=== PATIENT | female | born 1935 | race Two or more races ===

== ENCOUNTER 2018-09-05 15:39 | Inpatient (IN) | payer MEDICARE, OTHER ==
[~2018-09-05] VITALS: Ht 152.4 cm; Wt 49.4 kg
[2018-09-05] MEDS ORDERED: SINEMET 25-1001 EAC1 ORAL (15:54)
[2018-09-05] MEDS ORDERED: LISINOPRIL5 MG ORAL (15:54)
[2018-09-05] MEDS ORDERED: METOPROLOL TART50 MG ORAL (15:54)
[2018-09-05] MEDS ORDERED: QUETIAPINE FUMA50 MG ORAL (15:54)
[2018-09-05] MEDS ORDERED: DIVALPROEX SOD250 M1 PO (15:54)
[2018-09-05] MEDS ORDERED: SIMVASTATIN20 MG ORAL (15:54)
[2018-09-05] MEDS ORDERED: BENZTROPINE ME0.5 MG PO (15:54)
--- NOTE | 2018-09-05 15:55 | NUR ---
ED Nurse Note: Pt BIBA from [facility] due to being "more aggitated", AOx2 (name/place), seems confused at times but calm and cooperative with staffs. Vital signs stable jose angel. Will cont to monitor.
[2018-09-05 15:57] VITALS: BP 146/76
--- NOTE | 2018-09-05 16:08 | Emergency Room Report ---
History of Present Illness General Chief Complaint: General Complaint Source: Medical Record, PMD Present Illness HPI 82-year-old female, coming from [facility], with history of dementia, hypertension, hyperlipidemia, presenting with inability to care for self. She' s at the [facility] and she has been having frequent falls. Reportedly the [facility] cannot take care of her any longer per the PMD Dr. Carias so she will require admission to the hospital. The family cannot take care of her either. Patient noted to have a bruise to her right eye, she says she does not know when this happened. Allergies: Coded Allergies: No Known Allergies (Unverified , 09/05/18) Patient History Past Medical History: see triage record Past Surgical History: none Pertinent Family History: none Reviewed Nursing Documentation: PMH: Agreed; PSxH: Agreed Nursing Documentation-PMH Past Medical History: No History, Except For History Of Psychiatric Problem: Yes - bipolar Hx Neurological Problems: No - parkinson Review of Systems All Other Systems: limited - dementia Physical Exam Vital Signs Date Time Temp Pulse Resp B/P (MAP) Pulse Ox O2 Delivery O2 Flow Rate FiO2 09/05/18 15:47 97.9 80 16 146/76 99 Room Air Sp02 EP Interpretation: reviewed, normal General Appearance: normal inspection, well appearing, no apparent distress, alert, GCS 15, non-toxic Head: normocephalic, atraumatic Eyes: bilateral eye normal inspection, bilateral eye PERRL, bilateral eye EOMI ENT: other - Under right eye there is a bruise, otherwise normal oropharynx Neck: normal inspection, full range of motion, supple Respiratory: normal inspection, lungs clear, normal breath sounds, no respiratory distress, no retraction, no wheezing, speaking full sentences, chest symmetrical Cardiovascular #1: normal inspection, regular rate, rhythm, no edema, normal capillary refill Cardiovascular #2: 2+ radial (R), 2+ radial (L) Gastrointestinal: normal inspection, non tender, soft, non-distended, no guarding Musculoskeletal: normal inspection, back normal, normal range of motion, non- tender Neurologic: other - Oriented to person and place but not to situation or time. Moving all 4 extremities spontaneously Psychiatric: other - dementia Skin: normal inspection, normal color, no rash, warm/dry, well hydrated, normal turgor Medical Decision Making Diagnostic Impression: Primary Impression: Weakness Additional Impression: Frequent falls ER Course 82-year-old female with dementia coming from boarding care, they can no longer take care of her because of frequent falls DDX: Does not appear to have any acute traumatic injuries, but rule out intracranial bleed because of her bruise on her right eye Plan: Obtain labs, ua, EKG, CXR CT head ER course: Patient has been monitored during ED stay, HD stable Are awake and alert Disposition: Patient is to be admitted to [facility] D/W hospitalist Dr Carias Please note that this Emergency Department Report was dictated using [employer] golf coach technology software, occasionally this can lead to erroneous entry secondary to interpretation by the dictation equipment. EKG Diagnostic Results EP Interpretation: Yes Rate: normal Rhythm: NSR ST Segments: No acute changes ASA given to patient: No Rhythm Strip EP Interpretation: Yes Rate: 81 Rhythm: NSR, no PVCs, no ectopy Chest X-ray CXR: Ordered: Yes 1 view Indication: Altered mental status EP interpretation: Yes Interpretation: No consolidation, no effusion, no PTX, no acute cardiopulmonary disease Impression: No acute disease Electronically signed by Wan Roberson MD Laboratory Tests Test 09/05/18 16:20 White Blood Count 10.6 K/UL (4.8-10.8) Red Blood Count 3.94 M/UL (4.20-5.40) L Hemoglobin 13.1 G/DL (12.0-16.0) Hematocrit 39.0 % (37.0-47.0) Mean Corpuscular Volume 99 FL (80-99) Mean Corpuscular Hemoglobin 33.3 PG (27.0-31.0) H Mean Corpuscular Hemoglobin Concent 33.6 G/DL (32.0-36.0) Red Cell Distribution Width 12.8 % (11.6-14.8) Platelet Count 205 K/UL (150-450) Mean Platelet Volume 6.8 FL (6.5-10.1) Neutrophils (%) (Auto) 61.8 % (45.0-75.0) Lymphocytes (%) (Auto) 25.2 % (20.0-45.0) Monocytes (%) (Auto) 10.1 % (1.0-10.0) H Eosinophils (%) (Auto) 1.7 % (0.0-3.0) Basophils (%) (Auto) 1.2 % (0.0-2.0) Sodium Level 139 MMOL/L (136-145) Potassium Level 4.7 MMOL/L (3.5-5.1) Chloride Level 100 MMOL/L (98-107) Carbon Dioxide Level 35 MMOL/L (21-32) H Anion Gap 4 mmol/L (5-15) L Blood Urea Nitrogen 26 mg/dL (7-18) H Creatinine 0.8 MG/DL (0.55-1.30) Estimate Glomerular Filtration Rate mL/min (>60) Glucose Level 90 MG/DL (74-106) Calcium Level 9.5 MG/DL (8.5-10.1) Total Bilirubin 0.5 MG/DL (0.2-1.0) Aspartate Amino Transferase (AST) 21 U/L (15-37) Alanine Aminotransferase (ALT) 6 U/L (12-78) L Alkaline Phosphatase 87 U/L (46-116) Total Protein 6.9 G/DL (6.4-8.2) Albumin 2.8 G/DL (3.4-5.0) L Globulin 4.1 g/dL Albumin/Globulin Ratio 0.7 (1.0-2.7) L CT/MRI/US Diagnostic Results CT/MRI/US Diagnostic Results : Imaging Test Ordered: CT HEAD Impression IMPRESSION: Chronic and age-related changes. 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 Sep 05, 2018 16:08
[2018-09-05 16:46] LABS: BASOPHILS % (AUTO) 1.2 % (0.0-2.0); EOSINOPHILS % (AUTO) 1.7 % (0.0-3.0); HEMOGLOBIN 13.1 G/DL (12.0-16.0); LYMPHOCYTES % (AUTO) 25.2 % (20.0-45.0); MEAN CORPUSCULAR VOLUME 99 FL (80-99); MONOCYTES % (AUTO) 10.1 % (1.0-10.0); NEUTROPHILS % (AUTO) 61.8 % (45.0-75.0); PLATELET COUNT 205 K/UL (150-450); RED BLOOD COUNT 3.94 M/UL (4.20-5.40); RED CELL DISTRIBUTION WIDTH 12.8 % (11.6-14.8); WHITE BLOOD COUNT 10.6 K/UL (4.8-10.8)
--- NOTE | 2018-09-05 17:00 | Diagnostic Imaging Report ---
Indication: Reason For Exam: AMS Technique: One view of the chest Comparison: none Findings: No acute infiltrates, effusions, or congestion. Tortuous calcified aorta. Normal heart size. Upper mediastinum unremarkable. Impression: No acute process.
--- NOTE | 2018-09-05 17:04 | Diagnostic Imaging Report ---
Indication: Head pain, status post fall Technique: spiral acquisitions obtained through the brain. Angled axial and coronal 5 x 5 mm slices were reconstructed. No IV contrast utilized. Radiation dose was minimized using automated exposure control Total dose length product 1369.05 mGycm. CTDIvol(s) 70.38 mGy Comparison: none FINDINGS: No acute hemorrhage or edema. No mass effect or midline shift. There is age-related enlargement of the ventricles and extra axial CSF spaces. There is periventricular deep white matter ischemic change. Normal aaron-white differentiation. Visualized orbits are unremarkable. Visualized sinuses are unremarkable. Intact calvarium. Densely calcified extra-axial lesion in the lateral left middle fossa measures 18 x 12 x 20 mm, likely an old ossified meningioma. This does not result in any significant mass effect IMPRESSION: Chronic and age-related changes. 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
[2018-09-05 17:05] LABS: ANION GAP 4 mmol/L (5-15); BLOOD UREA NITROGEN 26 mg/dL (7-18); CALCIUM 9.5 MG/DL (8.5-10.1); CARBON DIOXIDE 35 MMOL/L (21-32); CHLORIDE 100 MMOL/L (98-107); CREATININE 0.8 MG/DL (0.55-1.30); POTASSIUM 4.7 MMOL/L (3.5-5.1); SODIUM 139 MMOL/L (136-145)
[2018-09-05 17:10] LABS: ALANINE AMINOTRANSFERASE 6 U/L (12-78); ALBUMIN 2.8 G/DL (3.4-5.0); ALBUMIN/GLOBULIN RATIO 0.7 (1.0-2.7); ALKALINE PHOSPHATASE 87 U/L (46-116); ASPARTATE AMINO TRANSFERASE 21 U/L (15-37); BILIRUBIN,TOTAL 0.5 MG/DL (0.2-1.0)
--- NOTE | 2018-09-05 17:38 | NUR ---
ED Nurse Note: [address] RN is not ready to take report at this time, will try again.
[2018-09-05 17:45] VITALS: BP 141/57
[2018-09-05 17:51] LABS: APPEARANCE,URINE CLOUDY; BILIRUBIN, URINE NEGATIVE (NEGATIVE); COLOR,URINE PALE YELLOW; GLUCOSE, URINE (UA) NEGATIVE (NEGATIVE); KETONES,URINE NEGATIVE (NEGATIVE); LEUKOCYTE ESTERASE ,URINE 3+ (NEGATIVE); NITRITE,URINE NEGATIVE (NEGATIVE); PH,URINE 8 (4.5-8.0); PROTEIN,URINE NEGATIVE (NEGATIVE); UROBILINOGEN,URINE NORMAL MG/DL (0.0-1.0)
--- NOTE | 2018-09-05 18:00 | NUR ---
ED Nurse Note: Repor given to JEOVANNY Peck at ext [phone]. Pt to be transfered to room 405-1 per protocol with all belongings.
[2018-09-05] MEDS ORDERED: cefTRIAXone 1 GM in D5W 55 ML IVPB ONE (18:15)
[2018-09-05] MEDS ORDERED: DEPAKOTE250 MG PO (18:36)
[2018-09-05] MEDS ORDERED: DEPAKOTE500 MG PO (18:36)
[2018-09-05 20:00] VITALS: BP 123/76
--- NOTE | 2018-09-05 20:11 | NUR ---
NURSE NOTES: Received report from JEOVANNY Peck. Patient on room air, no signs of distress or labored breathing. IV intact, patent, and saline locked. Bed in lowest position with call light in reach. Called MD for admission orders, awaiting response.
[2018-09-06] VITALS: BP 126/79
[2018-09-06 04:00] VITALS: BP 138/77
--- NOTE | 2018-09-06 07:35 | NUR ---
HAND-OFF: Report given to JEOVANNY Limon.
[2018-09-06 07:45] VITALS: BP 129/72
[2018-09-06] MEDS: Depakote 500mg tab ORAL SCH ×2 (08:47→17:03)
[2018-09-06] MEDS: Lisinopril 2.5mg tab ORAL SCH (08:48)
[2018-09-06] MEDS: Levodopa/Carbidopa 25/100 tab ORAL SCH ×3 (08:48→17:03)
[2018-09-06] MEDS: Metoprolol Tartrate 50mg tab ORAL SCH (08:48)
--- NOTE | 2018-09-06 09:44 | NUR ---
NURSE NOTES: pt awake alert, no distress. call light within reach. bed in lowest position, locked. will monitor.
--- NOTE | 2018-09-06 10:15 | NUR ---
PT EVALUATION NOTE: Patient seen for initial evaluation, see complete evaluation for details. Patient presents with decreased strength which impairs patient's functional mobility. Patient will benefit from skilled inpatient PT intervention to address strength, balance, safety awareness and functional mobility. Recommend DC to SNF for continued rehab once cleared by .
--- NOTE | 2018-09-06 11:08 | NUR ---
Social Service Note SW spoke with Lulu [phone] fitness worker of [employer]. Patient with no known family. Per Lulu pervious to their facility patient resided in another [facility] owned board and care. Lulu states patient is struggling with ambulation and has had a fall. Board and Care unable to meet patient's needs at this time and recommend SNF placement. Referral faxed to [facility] [phone] (p) [phone] (f). Patient is a full code, doesn't have an advance directive or POLST. Will continue to monitor.
[2018-09-06 12:00] VITALS: BP 120/72
--- NOTE | 2018-09-06 13:14 | Consultation ---
History of Present Illness General Chief Complaint: General Complaint Present Illness HPI 82-year-old female with history of dementia, hypertension, hyperlipidemia, presenting with more confusion. the pt has had several falls. The pt is confused and unable to provide any meaningful hx. the pt is wasily agitated. She was unable to provide any hx. the pt is lacks capacity to make decisions. Allergies: Coded Allergies: No Known Allergies (Unverified , 09/05/18) Medication History Scheduled Benztropine Mesylate* (Cogentin*), 1 MG PO BID, (Reported) Carbidopa/Levodopa 25-100 Mg* (Sinemet 25-100 Mg Tablet*), 1 TAB ORAL THREE TIMES A DAY, (Reported) Divalproex Sodium (Depakote), 500 MG PO BID, (Reported) Divalproex Sodium* (Depakote*), 250 MG PO BID, (Reported) Lisinopril (Lisinopril*), 2.5 MG ORAL DAILY, (Reported) Metoprolol Tartrate* (Metoprolol Tartrate*), 50 MG ORAL DAILY, (Reported) Quetiapine Fumarate* (Quetiapine Fumarate*), 25 MG ORAL DAILY, (Reported) Simvastatin (Zocor), 20 MG ORAL BEDTIME, (Reported) Patient History Limited by: medical condition History Provided By: Medical Record, PMD Healthcare decision maker Resuscitation status Full Code Advanced Directive on File Past Medical/Surgical History Past Medical/Surgical History: (1) Frequent falls (2) Weakness Review of Systems Psychiatric: Reports: prior hx, anxiety, depressed feelings ROS Narrative the pt was unable to participate in the eval Physical Exam General Appearance: WD/WN, no apparent distress, alert, confused Neurologic: responsive, disoriented Last 24 Hour Vital Signs Date Time Temp Pulse Resp B/P (MAP) Pulse Ox O2 Delivery O2 Flow Rate FiO2 09/06/18 08:48 97 129/72 09/06/18 08:48 129/72 09/06/18 07:51 Room Air 09/06/18 07:45 98.6 97 18 129/72 (91) 99 09/06/18 04:00 98.6 91 18 138/77 (97) 99 09/06/18 00:00 98.6 92 18 126/79 (95) 100 09/05/18 23:33 Room Air 09/05/18 20:00 98.2 90 18 123/76 (92) 100 09/05/18 18:00 97.9 77 16 146/76 98 Room Air 09/05/18 17:45 97.9 79 16 141/57 99 Room Air 09/05/18 15:58 77 16 Room Air 09/05/18 15:57 77 16 146/76 98 Room Air 09/05/18 15:47 97.9 80 16 146/76 99 Room Air Laboratory Tests Test 09/05/18 16:20 09/05/18 17:18 White Blood Count 10.6 K/UL (4.8-10.8) Red Blood Count 3.94 M/UL (4.20-5.40) L Hemoglobin 13.1 G/DL (12.0-16.0) Hematocrit 39.0 % (37.0-47.0) Mean Corpuscular Volume 99 FL (80-99) Mean Corpuscular Hemoglobin 33.3 PG (27.0-31.0) H Mean Corpuscular Hemoglobin Concent 33.6 G/DL (32.0-36.0) Red Cell Distribution Width 12.8 % (11.6-14.8) Platelet Count 205 K/UL (150-450) Mean Platelet Volume 6.8 FL (6.5-10.1) Neutrophils (%) (Auto) 61.8 % (45.0-75.0) Lymphocytes (%) (Auto) 25.2 % (20.0-45.0) Monocytes (%) (Auto) 10.1 % (1.0-10.0) H Eosinophils (%) (Auto) 1.7 % (0.0-3.0) Basophils (%) (Auto) 1.2 % (0.0-2.0) Sodium Level 139 MMOL/L (136-145) Potassium Level 4.7 MMOL/L (3.5-5.1) Chloride Level 100 MMOL/L (98-107) Carbon Dioxide Level 35 MMOL/L (21-32) H Anion Gap 4 mmol/L (5-15) L Blood Urea Nitrogen 26 mg/dL (7-18) H Creatinine 0.8 MG/DL (0.55-1.30) Estimat Glomerular Filtration Rate mL/min (>60) Glucose Level 90 MG/DL (74-106) Calcium Level 9.5 MG/DL (8.5-10.1) Total Bilirubin 0.5 MG/DL (0.2-1.0) Aspartate Amino Transf (AST/SGOT) 21 U/L (15-37) Alanine Aminotransferase (ALT/SGPT) 6 U/L (12-78) L Alkaline Phosphatase 87 U/L (46-116) Total Protein 6.9 G/DL (6.4-8.2) Albumin 2.8 G/DL (3.4-5.0) L Globulin 4.1 g/dL Albumin/Globulin Ratio 0.7 (1.0-2.7) L Urine Color Pale yellow Urine Appearance Cloudy Urine pH 8 (4.5-8.0) Urine Specific Brandon 1.010 (1.005-1.035) Urine Protein Negative (NEGATIVE) Urine Glucose (UA) Negative (NEGATIVE) Urine Ketones Negative (NEGATIVE) Urine Blood 1+ (NEGATIVE) H Urine Nitrite Negative (NEGATIVE) Urine Bilirubin Negative (NEGATIVE) Urine Urobilinogen Normal MG/DL (0.0-1.0) Urine Leukocyte Esterase 3+ (NEGATIVE) H Urine RBC 0-2 /HPF (0 - 2) Urine WBC 10-15 /HPF (0 - 2) H Urine Squamous Epithelial Cells Many /LPF (NONE/OCC) H Urine Amorphous Sediment Moderate /LPF (NONE) H Urine Bacteria Few /HPF (NONE) Microbiology Date/Time Source Procedure Growth Status 09/05/18 17:18 Urine,Clean Catch Urine Culture - Preliminary Gram Negative Abiel Resulted Height (Feet): 5 Height (Inches): 0.00 Weight (Pounds): 109 Medications Current Medications Medications (Trade) Dose Ordered Sig/Ezequiel Route PRN Reason Start Time Stop Time Status Last Admin Dose Admin Carbidopa/Levodopa (Sinemet 25/100) 1 tab THREE TIMES A DAY ORAL 09/06/18 09:00 10/06/18 08:59 09/06/18 12:21 Divalproex Sodium (Depakote) 250 mg BID ORAL 09/06/18 09:00 10/06/18 08:59 09/06/18 08:47 Divalproex Sodium (Depakote) 500 mg BID ORAL 09/06/18 09:00 10/06/18 08:59 09/06/18 08:47 Lisinopril (Zestril) 2.5 mg DAILY ORAL 09/06/18 09:00 10/06/18 08:59 09/06/18 08:48 Metoprolol Tartrate (Lopressor) 50 mg DAILY ORAL 09/06/18 09:00 10/06/18 08:59 09/06/18 08:48 Non-Formulary Medication (Non-Formulary Med) 1 ea BID ORAL 09/06/18 09:00 10/06/18 08:59 UNV Non-Formulary Medication (Non-Formulary Med) 1 ea DAILY ORAL 09/06/18 09:00 10/06/18 08:59 UNV Quetiapine Fumarate (SEROquel) 25 mg DAILY ORAL 09/06/18 09:00 10/06/18 08:59 09/06/18 08:48 Assessment/Plan Problem List: (1) Psychotic disorder ICD Codes: F29 - Unspecified psychosis not due to a substance or known physiological condition SNOMED: 96276382 (2) Dementia with behavioral disturbance ICD Codes: F03.91 - Unspecified dementia with behavioral disturbance SNOMED: 0911876976946 Assessment/Plan depakote 250mg po bid seroquel 25mg po qam the pt lacks capacity to make decisions. the pt benefit from Sonny Tejada MD Sep 06, 2018 13:14
[2018-09-06] MEDS ORDERED: Piperacillin/Tazobactam 2.25 GM in D5W 55 ML IVPB SCH (14:30)
--- NOTE | 2018-09-06 14:46 | History & Physical ---
History and Physical History & Physicial [facility] [id number] Cornelio Carias MD Sep 06, 2018 14:46
[2018-09-06 16:00] VITALS: BP 118/72
--- NOTE | 2018-09-06 16:30 | History and Physical Report ---
DATE OF ADMISSION: 09/05/2018 CHIEF COMPLAINT: The patient has had frequent fall in [facility] and care unit. HISTORY OF PRESENT ILLNESS: The patient is an 82-year-old female, who was admitted with repeated falls in the board and care unit. The patient has history of underlying dementia, unable to provide any history. She is only oriented to name. She was also found to have UTI in the emergency room. PAST MEDICAL HISTORY: The patient has a history of bipolar disorder, Parkinson, dementia. MEDICATIONS: Reviewed in the EMR. SOCIAL HISTORY: No history of smoking or alcohol abuse. ALLERGIES: No known drug allergies. REVIEW OF SYSTEMS: Unobtainable. PHYSICAL EXAMINATION: GENERAL: The patient is elderly female in no acute distress. VITAL SIGNS: Blood pressure 146/76, pulse 80, temperature 97.9, respiratory is 16. HEENT: Lingle conjunctivae. Anicteric sclerae. The patient has ecchymosis around the eye. NECK: Supple. LUNGS: Clear to auscultation. HEART: S1, S2 without murmurs or rubs. ABDOMEN: Soft, nontender. EXTREMITIES: No cyanosis or edema. LABORATORY FINDINGS: CBC shows a WBC of 10,600, hematocrit 39, hemoglobin is 13.1, platelets 205,000. Chemistry panel shows serum sodium 139, potassium 4.7, chloride 100, CO2 35, BUN is 26, creatinine 0.8. AST 21, ALT of 6. The UA shows no protein, 10 to 15 wbc's per high-power field, few bacteria. ASSESSMENT: This is an 82-year-old female, who was admitted with frequent falls. She has history of Parkinson dementia as a combination which puts her at high risk in addition to her age. She has also urinary tract infection which could be a contributing factor to the patient's worsening condition. PLAN: The patient will be on IV antibiotics. Physical therapy was ordered. She was seen by Dr. Simon for Psychiatry. Labs will be followed and adjustment will be made in the patient's regimen. Cornelio Carias M.D. DR: Franky JOB#: [id number] CC:
--- NOTE | 2018-09-06 19:00 | NUR ---
HAND-OFF: Report given to SHILOH JEAN.
--- NOTE | 2018-09-06 19:30 | NUR ---
NURSE NOTES: RECEIVED PATIENT LYING IN BED, AWAKE, ALERT, ORIENTED TO SELF, REALITY ORIENTATION PROVIDED DURING ASSESSMENT; AGITATED, WANT TO BE LEFT ALONE, YELLING OUT "LEAVE ME ALONE, GET OUT", ABLE TO DE ESCALATE BEHAVIOR BY TALKING TO PATIENT IN CALM VOICE, INFORMING PATIENT OF MY INTENTIONS. DENIES PAIN. NO SIGNS AND SYMPTOMS OF ACUTE CARDIO RESPIRATORY DISTRESS/SHORTNESS OF BREATH, NO PERIPHERAL EDEMA NOTED. ABDOMEN SOFT/NON DISTENDED/BOWEL SOUNDS AUDIBLE. PURE WIK INTACT, DRAINING CLOUDY YELLOW URINE, DRAINAGE BAG POSITIONED BELOW LEVEL OF WAIST TO PREVENT URINE BACKFLOW. SIDE RAILS UP X3/BED IN LOWEST POSITION FOR SAFETY. CALL LIGHT WITHIN REACH. BED ALARM ACTIVATED. FREQUENT ROUNDS FOR SAFETY/NEEDS. NAD.
[2018-09-06 20:00] VITALS: BP 118/54
--- NOTE | 2018-09-06 20:47 | NUR ---
CASE MANAGEMENT: INITIAL REVIEW 82 YO F BROOKS FROM [facility] CC: INCREASED AGITATION PMHx: DEMENTIA. BIPOLAR. PARKINSONS. SI: WEAKNESS. T 97.9 HR 80 RR 16 B/P 146/76 SATS 99% ON RA CO2 35 BUN 26 ALT 6 IS: CT HEAD (-) PATIENT ADMITTED TO MED/SURG 09/05/2018 @ 1642 DCP: PATIENT TO BE DISCHARGED TO BOARD AND CARE ONCE MEDICALLY CLEARED. PLAN OF CARE: IV ANTIBx PSYCH EVAL
[2018-09-06] MEDS: Zoysn 3.37gm in NS 100ML IVPB SCH (22:12)
[2018-09-07] VITALS: BP 108/68
[2018-09-07 04:00] VITALS: BP 115/66
[2018-09-07] MEDS: Zoysn 3.37gm in NS 100ML IVPB SCH ×3 (05:15→21:39)
--- NOTE | 2018-09-07 06:37 | NUR ---
NURSE NOTES: RESTED WELL, NO SIGNIFICANT CHANGE OF CONDITION NOTED THROUGHOUT THE NIGHT. SAFETY MAINTAINED. NAD.
--- NOTE | 2018-09-07 07:30 | NUR ---
HAND-OFF: Report given to JEOVANNY VENTURA.
--- NOTE | 2018-09-07 07:30 | NUR ---
NURSE NOTES: Received pt from JEOVANNY MAURICE. Pt is orient x1. No SOB or acute respiratory distress noted. pt has intact iv access LAC 20g SL. all needs attended, bed is locked and is in the lowest position. call light within easy reach. will continue to monitor.
[2018-09-07 08:00] VITALS: BP 125/81
[2018-09-07] MEDS: Depakote 500mg tab ORAL SCH ×2 (09:27→21:01)
[2018-09-07] MEDS: Lisinopril 2.5mg tab ORAL SCH (09:27)
[2018-09-07] MEDS: Metoprolol Tartrate 50mg tab ORAL SCH (09:27)
[2018-09-07] MEDS: Levodopa/Carbidopa 25/100 tab ORAL SCH ×3 (09:28→17:20)
--- NOTE | 2018-09-07 11:16 | NUR ---
Social Service Note Patient accepted at [facility] per Linda in admissions, under skilled care to room 18-C on 09/08/18. Nurse to call report prior to transfer [phone].
[2018-09-07 12:00] VITALS: BP 121/76
[2018-09-07 16:00] VITALS: BP 119/80
--- NOTE | 2018-09-07 16:22 | General Progress Note ---
Assessment/Plan Problem List: (1) Frequent falls ICD Codes: R29.6 - Repeated falls SNOMED: 223723662 (2) Weakness ICD Codes: R53.1 - Weakness SNOMED: 83421936 (3) Dementia with behavioral disturbance ICD Codes: F03.91 - Unspecified dementia with behavioral disturbance SNOMED: 6317183636338 (4) UTI (urinary tract infection) ICD Codes: N39.0 - Urinary tract infection, site not specified SNOMED: 14545164 Assessment/Plan Abxs PT Discussed with RN Subjective Allergies: Coded Allergies: No Known Allergies (Unverified , 09/05/18) Subjective In NAD Objective Last 24 Hour Vital Signs Date Time Temp Pulse Resp B/P (MAP) Pulse Ox O2 Delivery O2 Flow Rate FiO2 09/07/18 16:00 97.4 86 19 119/80 (93) 96 09/07/18 12:00 98.1 82 18 121/76 (91) 98 09/07/18 09:27 86 125/81 09/07/18 09:27 125/81 09/07/18 09:00 Room Air 09/07/18 08:00 98.7 86 19 125/81 (96) 97 09/07/18 04:00 97.9 78 18 115/66 (82) 99 09/07/18 00:00 97.6 80 18 108/68 (81) 99 09/06/18 21:08 Room Air 09/06/18 20:00 97.0 85 18 118/54 (75) 97 Intake and Output 09/06/18 09/07/18 19:00 07:00 Intake Total 600 ml 470.0 ml Balance 600 ml 470.0 ml Intake Oral 600 ml 360 ml IV Total 110.0 ml # Voids 2 2 Height (Feet): 5 Height (Inches): 0.00 Weight (Pounds): 109 Cardiovascular: normal rate Respiratory/Chest: lungs clear Edema: no edema noted Generalized Cornelio Carias MD Sep 07, 2018 16:22
--- NOTE | 2018-09-07 19:30 | NUR ---
NURSE NOTES: RECEIVED PATIENT LYING IN BED, AWAKE, VERBALLY ABUSIVE UPON ENTERING ROOM. DENIES PAIN. NO SIGNS AND SYMPTOMS OF ACUTE CARDIO RESPIRATORY DISTRESS/SHORTNESS OF BREATH, NO EDEMA NOTED. ABDOMEN SOFT/NON DISTENDED/NON TENDER/AUDIBLE BOWEL SOUNDS, INCONTINENT, CARE PROVIDED, TOLERATED WELL, REPOSITIONED FOR COMFORT/PRESSURE RELIEF. SIDE RAILS UP X3/BED IN LOWEST POSITION FOR SAFETY. CALL LIGHT WITHIN REACH. NAD. FREQUENT ROUNDING FOR SAFETY/NEEDS.
[2018-09-07 20:00] VITALS: BP 124/76
--- NOTE | 2018-09-07 20:28 | General Progress Note ---
Assessment/Plan Problem List: (1) Psychotic disorder ICD Codes: F29 - Unspecified psychosis not due to a substance or known physiological condition SNOMED: 53097104 (2) Dementia with behavioral disturbance ICD Codes: F03.91 - Unspecified dementia with behavioral disturbance SNOMED: 7493473968131 Assessment/Plan depakote 250mg po bid seroquel 25mg po qam the pt lacks capacity to make decisions. the pt benefit from sniff Subjective Neurologic/Psychiatric: Reports: anxiety, depressed, emotional problems Allergies: Coded Allergies: No Known Allergies (Unverified , 09/05/18) Objective Last 24 Hour Vital Signs Date Time Temp Pulse Resp B/P (MAP) Pulse Ox O2 Delivery O2 Flow Rate FiO2 09/07/18 20:00 97.3 82 18 124/76 (92) 99 09/07/18 16:00 97.4 86 19 119/80 (93) 96 09/07/18 12:00 98.1 82 18 121/76 (91) 98 09/07/18 09:27 86 125/81 09/07/18 09:27 125/81 09/07/18 09:00 Room Air 09/07/18 08:00 98.7 86 19 125/81 (96) 97 09/07/18 04:00 97.9 78 18 115/66 (82) 99 09/07/18 00:00 97.6 80 18 108/68 (81) 99 09/06/18 21:08 Room Air Intake and Output 09/06/18 09/07/18 19:00 07:00 Intake Total 600 ml 470.0 ml Balance 600 ml 470.0 ml Intake Oral 600 ml 360 ml IV Total 110.0 ml # Voids 2 2 Height (Feet): 5 Height (Inches): 0.00 Weight (Pounds): 109 General Appearance: no apparent distress, alert, confused, agitated Sonny Simon MD Sep 07, 2018 20:28
--- NOTE | 2018-09-07 20:28 | NUR ---
HAND-OFF: Report given to JEOVANNY MAURICE.
[2018-09-08] VITALS: BP 101/64
[2018-09-08 04:00] VITALS: BP 124/69
[2018-09-08] MEDS: Zoysn 3.37gm in NS 100ML IVPB SCH ×3 (05:27→21:34)
--- NOTE | 2018-09-08 06:26 | NUR ---
NURSE NOTES: RESTED WELL, NO SIGNIFICANT CHANGE OF CONDITION NOTED THROUGHOUT THE NIGHT, SAFETY MAINTAINED. NAD.
--- NOTE | 2018-09-08 07:32 | NUR ---
NURSE NOTES: Received pt from JEOVANNY MAURICE. Pt is confused and orient x1.No SOB or acute respiratory distress noted. pt has intact iv access RFA 22G SL. all needs attended, bed is locked and is in the lowest position. call light within easy reach. will continue to monitor.
[2018-09-08 08:00] VITALS: BP 120/74
[2018-09-08] MEDS: Depakote 500mg tab ORAL SCH ×2 (08:57→20:37)
[2018-09-08] MEDS: Levodopa/Carbidopa 25/100 tab ORAL SCH ×3 (08:57→17:05)
[2018-09-08] MEDS: Metoprolol Tartrate 50mg tab ORAL SCH (08:57)
[2018-09-08] MEDS: Lisinopril 2.5mg tab ORAL SCH (08:57)
[2018-09-08 12:00] VITALS: BP 115/56
--- NOTE | 2018-09-08 14:13 | Consultation ---
Consult Note Consult Note NEUROLOGY CONSULTATION: Full note dictated #[id number] 82 y/o, RH, CF with a nebulous PH. She apparently has a PH of BAD, Dementia, PS and lives in a NH. She was hospitalized for frequent falls at her NH and a UTI. ON EXAM: Oriented to self only. M:3/3-0, 0/3-1 & 3 Unable to recall presidents/do math/do VS problems. Dysarthria. Aphasia. Left VII central. Left UE>LE paresis. Proximal Right LE paresis. F to N - Normal on right Reflexes: Tr+ with ankles absent. Left plantar extensor. Stood with support on on sides. Significantly L>R paraparetic and apractic gait. No parkinsonian signs. IMPRESSION: 1. Dementia primary degenerative. 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 3. Markedly diminished DTRs - ?neuropathy. 4. CT of brain with atrophy, DWM changes and old ossified left middle fossa meningioma. 5. No parkinsonian signs. REC: Brain MRI Labs for neuropathy/memory PT/OT Rj Deras M.D., M.S.P.H. Rj Deras MD Sep 08, 2018 14:13
[2018-09-08 16:00] VITALS: BP 146/75
--- NOTE | 2018-09-08 16:18 | Cardiology Report ---
APPROVED REPORT EKG Measurement Heart [id number] Sinus rhythm with 1st degree AV block Low voltage QRS Borderline ECG
--- NOTE | 2018-09-08 19:07 | General Progress Note ---
Assessment/Plan Problem List: (1) Frequent falls ICD Codes: R29.6 - Repeated falls SNOMED: 105456156 (2) Weakness ICD Codes: R53.1 - Weakness SNOMED: 55806415 (3) Dementia with behavioral disturbance ICD Codes: F03.91 - Unspecified dementia with behavioral disturbance SNOMED: 6512649417166 (4) UTI (urinary tract infection) ICD Codes: N39.0 - Urinary tract infection, site not specified SNOMED: 00207549 Assessment/Plan Abxs PT Discussed with RN Subjective Allergies: Coded Allergies: No Known Allergies (Unverified , 09/05/18) Subjective In NAD Objective Last 24 Hour Vital Signs Date Time Temp Pulse Resp B/P (MAP) Pulse Ox O2 Delivery O2 Flow Rate FiO2 09/08/18 16:00 97.3 74 19 146/75 (98) 97 09/08/18 12:00 98.2 68 18 115/56 (75) 100 09/08/18 09:00 Room Air 09/08/18 08:57 76 120/74 09/08/18 08:57 120/74 09/08/18 08:00 98.2 76 18 120/74 (89) 97 09/08/18 04:00 97.9 78 18 124/69 (87) 96 09/08/18 00:00 97.1 79 18 101/64 (76) 99 09/07/18 21:00 Room Air 09/07/18 20:00 97.3 82 18 124/76 (92) 99 Intake and Output 09/07/18 09/08/18 19:00 07:00 Intake Total 660.0 ml 410.0 ml Balance 660.0 ml 410.0 ml Intake Oral 300 ml IV Total 110.0 ml 110.0 ml Other 550 ml # Voids 3 3 # Bowel Movements 1 Laboratory Tests 09/08/18 06:40: Valproic Acid (Depakene) Level 88 09/08/18 15:48: Erythrocyte Sedimentation Rate 64H, Hemoglobin A1c 4.9, Total Protein (PEP) [ Pending], Albumin (PEP) [Pending], Globulin (PEP) [Pending], Albumin/Globulin Ratio [Pending], Vgsxz-4-Mmkbfqopt [Pending], Cllyi-2-Ymocnrskw [Pending], Beta Globulins [Pending], Beta Gamma Globulin [Pending], PEP Abnormal Protein Bands [ Pending], Protein Electrophoresis Interpret [Pending], Vitamin B12 Level 1779H, Vitamin D 25-Hydroxy [Pending], 25-Hydroxy Vitamin D2 [Pending], 25-Hydroxy Vitamin D3 [Pending], Folate 26.9, Thyroid Stimulating Hormone (TSH) 1.566, Rapid Plasma Reagin [Pending] Height (Feet): 5 Height (Inches): 0.00 Weight (Pounds): 109 Cardiovascular: normal rate Respiratory/Chest: lungs clear Cornelio Carias MD Sep 08, 2018 19:07
--- NOTE | 2018-09-08 19:12 | NUR ---
HAND-OFF: Report given to PARAM. Addendum: 09/08/18 at 1918 by Florecita Hutchinson RN INCORECT HAND-OFF: Report given to RANULFO.
[2018-09-08 20:00] VITALS: BP 100/73
--- NOTE | 2018-09-08 20:07 | NUR ---
NURSE NOTES: RECEIVED PATIENT LYING IN BED, AWAKE, ALERT TO SELF. DENIES PAIN AT THIS TIME. NO SIGNS AND SYMPTOMS RESPIRATORY DISTRESS. BED IN LOWEST POSITION FOR SAFETY. CALL LIGHT WITHIN REACH. BED ALARM ON. WILL CONTINUE TO MONITOR.
--- NOTE | 2018-09-08 22:17 | General Progress Note ---
Assessment/Plan Problem List: (1) Psychotic disorder ICD Codes: F29 - Unspecified psychosis not due to a substance or known physiological condition SNOMED: 76169987 (2) Dementia with behavioral disturbance ICD Codes: F03.91 - Unspecified dementia with behavioral disturbance SNOMED: 3558211603823 Status: stable, progressing Assessment/Plan depakote 250mg po bid seroquel 25mg po qam the pt lacks capacity to make decisions. the pt benefit from sniff Subjective Neurologic/Psychiatric: Reports: anxiety, depressed, emotional problems Allergies: Coded Allergies: No Known Allergies (Unverified , 09/05/18) Objective Last 24 Hour Vital Signs Date Time Temp Pulse Resp B/P (MAP) Pulse Ox O2 Delivery O2 Flow Rate FiO2 09/08/18 22:00 Room Air 09/08/18 20:00 80 19 100/73 (82) 94 09/08/18 16:00 97.3 74 19 146/75 (98) 97 09/08/18 12:00 98.2 68 18 115/56 (75) 100 09/08/18 09:00 Room Air 09/08/18 08:57 76 120/74 09/08/18 08:57 120/74 09/08/18 08:00 98.2 76 18 120/74 (89) 97 09/08/18 04:00 97.9 78 18 124/69 (87) 96 09/08/18 00:00 97.1 79 18 101/64 (76) 99 Intake and Output 09/07/18 09/08/18 19:00 07:00 Intake Total 660.0 ml 410.0 ml Balance 660.0 ml 410.0 ml Intake Oral 300 ml IV Total 110.0 ml 110.0 ml Other 550 ml # Voids 3 3 # Bowel Movements 1 Laboratory Tests 09/08/18 06:40: Valproic Acid (Depakene) Level 88 09/08/18 15:48: Erythrocyte Sedimentation Rate 64H, Hemoglobin A1c 4.9, Total Protein (PEP) [ Pending], Albumin (PEP) [Pending], Globulin (PEP) [Pending], Albumin/Globulin Ratio [Pending], Unjyo-7-Zaadtzicl [Pending], Iumrd-4-Nbhtgrtmv [Pending], Beta Globulins [Pending], Beta Gamma Globulin [Pending], PEP Abnormal Protein Bands [ Pending], Protein Electrophoresis Interpret [Pending], Vitamin B12 Level 1779H, Vitamin D 25-Hydroxy [Pending], 25-Hydroxy Vitamin D2 [Pending], 25-Hydroxy Vitamin D3 [Pending], Folate 26.9, Thyroid Stimulating Hormone (TSH) 1.566, Rapid Plasma Reagin [Pending] Height (Feet): 5 Height (Inches): 0.00 Weight (Pounds): 109 General Appearance: no apparent distress, alert, confused Sonny Simon MD Sep 08, 2018 22:17
--- NOTE | 2018-09-08 22:30 | Consultation ---
DATE OF CONSULTATION: 09/08/2018 NEUROLOGY CONSULTATION CONSULTING PHYSICIAN: Rj Deras M.D. REQUESTING PHYSICIAN: Cornelio Carias M.D. HISTORY: Ms. Brooke Chow is an 82-year-old, right-handed, lady, who has a nebulous past history. She apparently lives in a [facility] and has a prior history of bipolar affective disorder, dementia of unknown type, a parkinsonian syndrome, and possibly a stroke. She was functioning relatively well at her [facility] until recently when she was noted to have frequent falls. She was brought into the [facility] emergency room where she was found to have a urinary tract infection. She has been treated for urinary tract infection, but continues to be confused, disoriented, and unable to walk on her own. PAST MEDICAL HISTORY: Significant for bipolar affective disorder, dementia parkinsonian syndrome, and possible stroke. FAMILY HISTORY: Nothing significant as per the patient, but quite unreliable. PERSONAL HISTORY: Home: She lives in a [facility]. Work: She is unable to tell me what kind of work she did in the past. Habits: She denies the use of alcohol, tobacco, or illicit drugs. MEDICATIONS: Depakote 500 mg q.12 hours, Zosyn, Seroquel 25 mg q.6 hours as needed, Sinemet 25/100 tid, lisinopril, metoprolol, and Seroquel 25 mg at bedtime. PHYSICAL EXAMINATION: GENERAL: She is a well-developed, well-nourished lady, lying in bed, in no acute distress. VITAL SIGNS: Pulse 68/minute, blood pressure 115/56 mmHg, respirations 18/minute, and temperature 98.2 degrees Fahrenheit. HEAD: Normocephalic and atraumatic. EENT: Examination benign. NECK: No neck rigidity was observed. NEUROLOGICAL EXAMINATION: MENTAL STATUS EXAMINATION: She was awake and alert. She was oriented to self only. She had no idea where she was or what the date was. She was able to recall 3/3 words immediately, but could not remember any of them in 1 amd 3 minutes even on the second trial. She was unable to tell me who the present President was and who prior presidents were. Her mathematical skills were significantly impaired. Her visuospatial function was also impaired. SPEECH: She had a mild dysarthria. LANGUAGE: She had anomia for low and mid frequency words. CRANIAL NERVE EXAMINATION: II: The visual guerrero were intact on confrontation testing. III, IV & : The external ocular movements were full and the pupils 3 mm in diameter, equal, round, regular, and reactive sluggishly to light. V: She had normal facial sensations, and the temporales, masseters, and pterygoids functioned normally. VII: She had a left seventh central facial paresis. VIII: She was able to hear and had no nystagmus. IX: The palate moved symmetrically on phonation. X: She had no hoarseness of voice. XI: The sternocleidomastoids and trapezii functioned normally. XII: The tongue was in the midline without any fasciculations or atrophy. MOTOR SYSTEM: The tone was increased on the left side with spasticity. Examination of muscle mass revealed generalized muscle wasting. Examination of power was exceedingly difficult to perform because of varying degrees of cooperation. She however had a definite left greater than right, upper extremity greater than lower extremity, paresis. SENSORY EXAMINATION: She had intact sensations to deep pain. She was unable to cooperate for the sensory modalities. REFLEXES: Trace+ and bilaterally symmetrical at the biceps, triceps, brachioradialis, and knees, 0 at both ankles. The plantar responses were flexor on the right and extensor on the left. STANCE: She needed support on both sides to stand up. GAIT: She walked with support on both sides with a significantly left greater than right paretic and apractic gait. ABNORMAL MOVEMENTS: Tremor (4-5 hertz), rigidity, bradykinesia, hypomimia, hypophonia: G 0/4. Dyskinetic movements of both the neck and head G 1/4. DIAGNOSTIC IMPRESSION: 1. Ms. Brooke Chow is an 82-year-old, right-handed, lady, with a past history of bipolar affective disorder, dementia, parkinsonian syndrome, and cerebrovascular disease with a prior stroke, who was hospitalized for frequent falls at the [facility] and was then found to have a urinary tract infection. 2. On neurological examination, at this time, she is oriented to self only. She has severe problems with both recent and remote memory, has significant dysarthria, has a significant aphasia predominantly of an anomic nature, has a left seventh central facial paresis, has left upper extremity greater than lower extremity paresis, and has proximal right lower extremity paresis. She is able to perform styxbs-ab-smsa testing on the right side, but not on the left, and is unable to perform axqj-lb-jrzw testing bilaterally. She has globally diminished deep tendon reflexes with loss of ankle jerks, and has a left extensor plantar response. She needs support on both sides to stand up and walks with support on both sides with a left greater than right paretic and apractic gait. She however does not demonstrate any parkinsonian signs. She does however have dyskinetic movements of the head and neck. 3. The patient's laboratory data obtained thus far have revealed a relatively normal CBC, chemistry panel with a BUN elevated to 26, low albumin at 2.8, a valproic acid level of 88, a urinalysis with 3+ leukocyte esterase, 10-15 white blood cells, and 0-2 red blood cells per high power field. 4. 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 5. The patient's history, neurological examination, laboratory data and imaging studies are most consistent with dementia of a primary degenerative nature. She also demonstrates signs of right brain dysfunction as evidenced by the left hemiparesis. In addition, she also has findings compatible with a neuropathic process as evidenced by significantly diminished deep tendon reflexes. She however does not demonstrate any parkinsonian signs at this point in time. 6. The most likely etiology for the patient's falls, is a problem with controlling her gait - namely an apraxia, the weakness more marked on the left than on the right and in addition neuropathic dysfunction. RECOMMENDATIONS: 1. Agree with management thus far. 2. An MRI scan of the brain will be ordered to evaluate the patient for the present state of intracranial pathology. 3. She will be worked up thoroughly for treatable causes of neuropathy and memory disturbance with in addition to the laboratory tests already done, a B12 level, folate level, vitamin D level, ESR, RPR, glycohemoglobin, Westergren sedimentation rate, and TSH. 4. Physical and occupational therapy should be started to mobilize her. Thank you for entrusting me with the care of Ms. Chow. I shall follow her with you. Rj Deras M.D., M.S.P.H. DR: SALOMON JOB#: [id number] MTDD
--- NOTE | 2018-09-09 00:38 | NUR ---
NURSE NOTES: PATIENT REFUSED 000 V/S YELLING "NO! GET OUT! GET OUT OF HERE!".
[2018-09-09] MEDS: Zoysn 3.37gm in NS 100ML IVPB SCH ×3 (05:41→21:08)
--- NOTE | 2018-09-09 07:19 | NUR ---
HAND-OFF: Report given to NIMA BANKS RN.
--- NOTE | 2018-09-09 07:20 | NUR ---
NURSE NOTES: Received patient from Elaina Oconnor RN, patient is up in bed and resting, no distress noted, bed is locked and in lowest position, no distress noted, will continue to monitor.
[2018-09-09 08:00] VITALS: BP 140/81
[2018-09-09] MEDS: Metoprolol Tartrate 50mg tab ORAL SCH (09:33)
[2018-09-09] MEDS: Lisinopril 2.5mg tab ORAL SCH (09:33)
[2018-09-09] MEDS: Levodopa/Carbidopa 25/100 tab ORAL SCH ×3 (09:33→17:19)
[2018-09-09] MEDS: Depakote 500mg tab ORAL SCH ×2 (09:33→21:08)
[2018-09-09 12:00] VITALS: BP 123/72
--- NOTE | 2018-09-09 13:53 | Neurology Progress Note ---
Interim History Interim History Interim History Ms. Chow feels OK. She is paranoid today. She is not very cooperative but denies any new neurologic symptoms. She continues to be cognitively impoverished. She continues to be weaker on the left. Review of Systems Neuro Review of Systems Benign. Objective Physical Exam Last Vital Signs Date Time Temp Pulse Resp B/P (MAP) Pulse Ox O2 Delivery O2 Flow Rate FiO2 09/09/18 09:33 80 140/81 09/09/18 08:45 Room Air 09/09/18 08:00 97.3 20 96 Laboratory Tests Test 09/08/18 15:48 Erythrocyte Sedimentation Rate 64 MM/HR (0-30) H Hemoglobin A1c 4.9 % (4.3-6.0) Total Protein (PEP) Pending Albumin (PEP) Pending Globulin (PEP) Pending Albumin/Globulin Ratio Pending Dwerc-1-Cmrnpcdvh Pending Qlnhx-9-Giffpopug Pending Beta Globulins Pending Beta Gamma Globulin Pending PEP Abnormal Protein Bands Pending Protein Electrophoresis Interpret Pending Vitamin B12 Level 1779 PG/ML (193-986) H Vitamin D 25-Hydroxy Pending 25-Hydroxy Vitamin D2 Pending 25-Hydroxy Vitamin D3 Pending Folate 26.9 NG/ML (8.6-58.9) Thyroid Stimulating Hormone (TSH) 1.566 uiU/mL (0.358-3.740) Rapid Plasma Reagin Non reactive (Non Reactive) Neurologic Exam Objective PHYSICAL EXAMINATION: GENERAL: She is a well-developed, well-nourished lady, lying in bed, in no acute distress. HEAD: Normocephalic and atraumatic. EENT: Examination benign. NECK: No neck rigidity was observed. NEUROLOGICAL EXAMINATION: MENTAL STATUS EXAMINATION: She was awake and alert. She was oriented to self and August only. She had no idea where she was or what the date or year was. She was able to recall 3/3 words immediately, but could not remember any of them in 1 and 3 minutes. She was unable to tell me who the present President was and who prior presidents were. Her mathematical skills were significantly impaired. Her visuospatial function was also impaired. SPEECH: She had a mild dysarthria. LANGUAGE: She had anomia for low and mid frequency words. CRANIAL NERVE EXAMINATION: II: The visual guerrero were intact on confrontation testing. III, IV & : The external ocular movements were full and the pupils 3 mm in diameter, equal, round, regular, and reactive sluggishly to light. V: She had normal facial sensations, and the temporales, masseters, and pterygoids functioned normally. VII: She had a left seventh central facial paresis. VIII: She was able to hear and had no nystagmus. IX: The palate moved symmetrically on phonation. X: She had no hoarseness of voice. XI: The sternocleidomastoids and trapezii functioned normally. XII: The tongue was in the midline without any fasciculations or atrophy. MOTOR SYSTEM: The tone was increased on the left side with spasticity. Examination of muscle mass revealed generalized muscle wasting. Examination of power was exceedingly difficult to perform because of varying degrees of cooperation. She however had a definite left greater than right, upper extremity greater than lower extremity, paresis. SENSORY EXAMINATION: She had intact sensations to deep pain. She was unable to cooperate for the sensory modalities. REFLEXES: Trace+ and bilaterally symmetrical at the biceps, triceps, brachioradialis, and knees, 0 at both ankles. The plantar responses were flexor on the right and extensor on the left. STANCE & GAIT: She refused to try. ABNORMAL MOVEMENTS: Tremor (4-5 hertz), rigidity, bradykinesia, hypomimia, hypophonia: G 0/4. Dyskinetic movements of both the neck and head G 1/4. Impression/Recommendations Diagnostic Impression 1. Ms. Brooke Chow is an 82-year-old, right-handed, lady, with a past history of bipolar affective disorder, dementia, parkinsonian syndrome, and cerebrovascular disease with a prior stroke, who was [facility] for frequent falls [facility] the [facility] and was then found to have a urinary tract infection. 2. She feels OK. She is paranoid today. She is not very cooperative but denies any new neurologic symptoms. She continues to be cognitively impoverished. She continues to be weaker on the left. 3. On neurological examination, at this time, she is oriented to self only. She has severe problems with both recent and remote memory, has significant dysarthria, has a significant aphasia predominantly of an anomic nature, has a left seventh central facial paresis, has left upper extremity greater than lower extremity paresis, and has proximal right lower extremity paresis. She is able to perform pwcnvw-vl-fgfz testing on the right side, but not on the left , and is unable to perform pjjv-cr-veom testing bilaterally. She has globally diminished deep tendon reflexes with loss of ankle jerks, and has a left extensor plantar response. She needs support on both sides to stand up and walks with support on both sides with a left greater than right paretic and apractic gait. She however does not demonstrate any parkinsonian signs. She does however have dyskinetic movements of the head and neck. 4. The patient's laboratory data on my initial evaluation revealed a relatively normal CBC, chemistry panel with a BUN elevated to 26, low albumin at 2.8, a valproic acid level of 88, a urinalysis with 3+ leukocyte esterase, 10-15 white blood cells, and 0-2 red blood cells per high power field. 5. Further laboratory tests have revealed a normal B12, Folate, Hemoglobin A1c, ESR and RPR. 6. 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 7. The patient's history, neurological examination, laboratory data and imaging studies are most consistent with dementia of a primary degenerative nature. She also demonstrates signs of right brain dysfunction as evidenced by the left hemiparesis. In addition, she also has findings compatible with a neuropathic process as evidenced by significantly diminished deep tendon reflexes. She however does not demonstrate any parkinsonian signs at this point in time. 8. The most likely etiology for the patient's falls, is a problem with controlling her gait - namely an apraxia, the weakness more marked on the left than on the right and in addition neuropathic dysfunction. Recommendations 1. Continue present management. 2. Await MRI scan of the brain to evaluate the patient for the present state of intracranial pathology. 3. Physical and occupational therapy to mobilize her. Rj Deras M.D., M.S.P.H. Rj Deras MD Sep 09, 2018 13:53
[2018-09-09 16:00] VITALS: BP 134/86
--- NOTE | 2018-09-09 17:38 | General Progress Note ---
Assessment/Plan Problem List: (1) Frequent falls ICD Codes: R29.6 - Repeated falls SNOMED: 019871002 (2) Weakness ICD Codes: R53.1 - Weakness SNOMED: 54780516 (3) Dementia with behavioral disturbance ICD Codes: F03.91 - Unspecified dementia with behavioral disturbance SNOMED: 6198884236054 (4) UTI (urinary tract infection) ICD Codes: N39.0 - Urinary tract infection, site not specified SNOMED: 41129434 Assessment/Plan Abxs PT Discussed with RN Dc in AM Subjective Allergies: Coded Allergies: No Known Allergies (Unverified , 09/05/18) Subjective In NAD Objective Last 24 Hour Vital Signs Date Time Temp Pulse Resp B/P (MAP) Pulse Ox O2 Delivery O2 Flow Rate FiO2 09/09/18 16:00 97.2 66 20 134/86 (102) 97 09/09/18 12:00 98.4 98 17 123/72 (89) 98 09/09/18 09:33 80 140/81 09/09/18 09:33 140/81 09/09/18 08:45 Room Air 09/09/18 08:00 97.3 20 140/81 (100) 96 09/08/18 22:00 Room Air 09/08/18 20:00 80 19 100/73 (82) 94 Intake and Output 09/08/18 09/09/18 18:59 06:59 Intake Total 510.0 ml 170.0 ml Balance 510.0 ml 170.0 ml Intake Oral 400 ml 60 ml IV Total 110.0 ml 110.0 ml # Voids 1 # Bowel Movements 1 Height (Feet): 5 Height (Inches): 0.00 Weight (Pounds): 109 Cardiovascular: normal rate Respiratory/Chest: lungs clear Edema: no edema noted Generalized Cornelio Carias MD Sep 09, 2018 17:38
--- NOTE | 2018-09-09 19:17 | NUR ---
NURSE NOTES: Received patient awake in bed, no s/s of acute distress. IV site asymptomatic, on saline lock, dressing dry and intact. Bed on lowest position, 2 side rails up, call light and belongings within reach. 1:1 feeder necessity noted.
--- NOTE | 2018-09-09 19:26 | NUR ---
HAND-OFF: Report given to Augie UP.
--- NOTE | 2018-09-09 20:10 | General Progress Note ---
Assessment/Plan Problem List: (1) Psychotic disorder ICD Codes: F29 - Unspecified psychosis not due to a substance or known physiological condition SNOMED: 67357721 (2) Dementia with behavioral disturbance ICD Codes: F03.91 - Unspecified dementia with behavioral disturbance SNOMED: 7763039146120 Status: stable Assessment/Plan depakote 250mg po bid seroquel 25mg po qam the pt lacks capacity to make decisions. the pt benefit from sniff Subjective Neurologic/Psychiatric: Reports: anxiety, depressed, emotional problems Allergies: Coded Allergies: No Known Allergies (Unverified , 09/05/18) Objective Last 24 Hour Vital Signs Date Time Temp Pulse Resp B/P (MAP) Pulse Ox O2 Delivery O2 Flow Rate FiO2 09/09/18 16:00 97.2 66 20 134/86 (102) 97 09/09/18 12:00 98.4 98 17 123/72 (89) 98 09/09/18 09:33 80 140/81 09/09/18 09:33 140/81 09/09/18 08:45 Room Air 09/09/18 08:00 97.3 20 140/81 (100) 96 09/08/18 22:00 Room Air Intake and Output 09/08/18 09/09/18 18:59 06:59 Intake Total 510.0 ml 170.0 ml Balance 510.0 ml 170.0 ml Intake Oral 400 ml 60 ml IV Total 110.0 ml 110.0 ml # Voids 1 # Bowel Movements 1 Height (Feet): 5 Height (Inches): 0.00 Weight (Pounds): 109 General Appearance: no apparent distress, alert, confused Sonny Simon MD Sep 09, 2018 20:10
[2018-09-10 00:08] VITALS: BP 130/89
[2018-09-10 04:00] VITALS: BP 140/71
[2018-09-10] MEDS: Zoysn 3.37gm in NS 100ML IVPB SCH ×2 (05:10→15:07)
--- NOTE | 2018-09-10 07:26 | NUR ---
HAND-OFF: Report given to JEOVANNY Altman.
--- NOTE | 2018-09-10 07:38 | NUR ---
NURSE NOTES: pt in bed with no sob nor in any form of distress noted. Bed in lowest position. Call light within reach at all time. will continue to monitor
[2018-09-10] MEDS: Levodopa/Carbidopa 25/100 tab ORAL SCH ×3 (08:56→17:33)
[2018-09-10] MEDS: Depakote 500mg tab ORAL SCH (08:56)
[2018-09-10] MEDS: Lisinopril 2.5mg tab ORAL SCH (08:57)
[2018-09-10] MEDS: Metoprolol Tartrate 50mg tab ORAL SCH (08:57)
[2018-09-10] MEDS ORDERED: LORazepam 1mg tab ORAL SCH (11:11)
--- NOTE | 2018-09-10 11:12 | General Progress Note ---
Assessment/Plan Problem List: (1) Psychotic disorder ICD Codes: F29 - Unspecified psychosis not due to a substance or known physiological condition SNOMED: 97028544 (2) Dementia with behavioral disturbance ICD Codes: F03.91 - Unspecified dementia with behavioral disturbance SNOMED: 1361008251569 Status: not improved Assessment/Plan depakote 250mg po bid seroquel 25mg po qam the pt lacks capacity to make decisions. the pt benefit from sniff pt just received Seroquel and will receive a dose of Ativan before MRI of head Subjective Neurologic/Psychiatric: Reports: anxiety, depressed Allergies: Coded Allergies: No Known Allergies (Unverified , 09/05/18) Subjective the pt was uncooperative and gets easily agitated. poor memory. Objective Last 24 Hour Vital Signs Date Time Temp Pulse Resp B/P (MAP) Pulse Ox O2 Delivery O2 Flow Rate FiO2 09/10/18 09:41 Room Air 09/10/18 08:57 71 140/71 09/10/18 08:57 140/71 09/10/18 04:00 98.0 71 18 140/71 (94) 99 09/10/18 00:08 98.7 68 18 130/89 (103) 98 09/09/18 21:00 Room Air 09/09/18 16:00 97.2 66 20 134/86 (102) 97 09/09/18 12:00 98.4 98 17 123/72 (89) 98 Intake and Output 09/09/18 09/10/18 19:00 07:00 Intake Total 280 ml 140 ml Output Total 550 ml 600 ml Balance -270 ml -460 ml Intake Oral 280 ml 140 ml Output Urine Total 550 ml 600 ml # Voids 4 Height (Feet): 5 Height (Inches): 0.00 Weight (Pounds): 109 General Appearance: alert, confused, agitated Sonny Simon MD Sep 10, 2018 11:12
--- NOTE | 2018-09-10 11:26 | General Progress Note ---
Assessment/Plan Problem List: (1) Frequent falls ICD Codes: R29.6 - Repeated falls SNOMED: 319472482 (2) Weakness ICD Codes: R53.1 - Weakness SNOMED: 20677939 (3) Dementia with behavioral disturbance ICD Codes: F03.91 - Unspecified dementia with behavioral disturbance SNOMED: 1137883650467 (4) UTI (urinary tract infection) ICD Codes: N39.0 - Urinary tract infection, site not specified SNOMED: 27755207 Assessment/Plan Dc Abxs DC milana Ledbetter Discussed with Dr Simon Subjective Allergies: Coded Allergies: No Known Allergies (Unverified , 09/05/18) Subjective In NAD Objective Last 24 Hour Vital Signs Date Time Temp Pulse Resp B/P (MAP) Pulse Ox O2 Delivery O2 Flow Rate FiO2 09/10/18 09:41 Room Air 09/10/18 08:57 71 140/71 09/10/18 08:57 140/71 09/10/18 04:00 98.0 71 18 140/71 (94) 99 09/10/18 00:08 98.7 68 18 130/89 (103) 98 09/09/18 21:00 Room Air 09/09/18 16:00 97.2 66 20 134/86 (102) 97 09/09/18 12:00 98.4 98 17 123/72 (89) 98 Intake and Output 09/09/18 09/10/18 19:00 07:00 Intake Total 280 ml 140 ml Output Total 550 ml 600 ml Balance -270 ml -460 ml Intake Oral 280 ml 140 ml Output Urine Total 550 ml 600 ml # Voids 4 Height (Feet): 5 Height (Inches): 0.00 Weight (Pounds): 109 Cornelio Carias MD Sep 10, 2018 11:26
--- NOTE | 2018-09-10 12:32 | NUR ---
*-* DISCHARGE PLANNING *-* PATIENT HAS BEEN REFERRED TO: [facility] P:[phone] F:[phone]
--- NOTE | 2018-09-10 15:29 | NUR ---
*-* DISCHARGE PLANNED *-* PATIENT IS DISCHARGED TO: [facility] 18-C SKILLED T:[phone] FOR NURSE TO NURSE REPORT [facility] HAS BEEN ARRANGED FOR ARCHITECTURAL RENDERER AT [id number]
[2018-09-10 16:00] VITALS: BP 112/62
--- NOTE | 2018-09-10 19:19 | NUR ---
HAND-OFF: Report given to JEOVANNY Soto.
--- NOTE | 2018-09-12 10:46 | Discharge Summary ---
Discharge Summary Discharge Summary _ DATE OF ADMISSION: 09/05/2018 DATE OF DISCHARGE: 09/10/2018 DISCHARGED BY: Dr. Carias . REASON FOR ADMISSION: 82 years old female with past medical history of hypertension, hyperlipidemia, bipolar disorder, Parkinson disease, dementia, inability to care for self, presented from [facility] due to repeated falls. Staff at the [facility], [place] was unable to care for this patient any longer. Upon evaluation vital signs were stable. Laboratory workup revealed no leukocytosis , stable hemoglobin and hematocrit, stable electrolytes, BUN 26, creatinine 0.8. Albumin 2.8. Stable LFT. CT of the head revealed no evidence of acute intracranial bleeding or mass- effect. 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 Chronic age-related changes. EKG revealed normal sinus rhythm, no acute changes. Chest x-ray revealed no acute cardiopulmonary pathology. Urinalysis revealed evidence of pyuria and few bacteria. Patient was admitted for further management. CONSULTANTS: neurologist Dr. Deras psychiatrist [facility]SE: Patient admitted to medical surgical floor. Patient started on gentle IV hydration and empiric antibiotic. Urine culture revealed gram-negative bacilli. Patient status post treatment with antibiotic. Home medications were resumed. Blood pressure was managed with beta-ranjan and NATHANAEL inhibitor and remained stable. Sinemet continued. Neurology closely followed . Per neurologist, the patient history, neurological examination, laboratory data and imaging studies were most consistent with dementia of the primary degenerative nature. She also demonstrated signs of right brain dysfunction as evidenced by left hemiparesis. In addition she had findings compatible with a neuropathic process as evidenced by significantly diminished deep tendon reflexes. However at this time she did not demonstrated any parkinsonian signs. The most likely etiology of recurrent falls was a problem with controlling her gait, namely apraxia, more prominent on the left. In addition she had findings compatible with a neuropathic process as evidenced by significantly diminished deep tendon reflexes. Serum protein electrophoresis, B12, folate, TSH were all within normal limits. RPR was nonreactive. Neurologist recommended continue present management and obtain MRI of the brain to evaluate present state of intracranial pathology, which could be done on outpatient basis. Psychiatric medication regimen was optimized as per psychiatrist, who closely followed. Patient was working with physical therapist. Fall precaution maintained. Pain management was addressed as needed. Bowel regimen instituted. Transfer was arranged to residential facility . Patient clinically stabilized and was ready for transfer to residential facility for continuation of care. 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 DISCHARGE INSTRUCTIONS: Patient was discharged to the residential facility. Follow up with medical doctor at the facility. I have been assigned to dictate discharge summary for this account. I was not involved in the patient's management. Shayna Archer NP Sep 12, 2018 10:46
== END 2018-09-10 19:30 | DRG 690 ==
LOC: EDBD 15:39 → EDBEDREQ 16:17 → EMR 16:30 → 4E 16:48 → ENRESERV 17:18 → EDBEDREQ 17:23
DX: N39.0 Urinary tract infection, site not specified (principal); F02.81 Dementia in other diseases classified elsewhere, unspecified severity, with behavioral disturbance; G20 Parkinson's disease; Z91.81 History of falling; F31.9 Bipolar disorder, unspecified; R29.6 Repeated falls; I10 Essential (primary) hypertension; R48.2 Apraxia; G62.9 Polyneuropathy, unspecified; E78.5 Hyperlipidemia, unspecified
CPT/HCPCS: 36415; 70450; 71045; 80053; 80164; 81003; 82306; 82607; 82746; 83036; 84165; 84443; 85025; 85651; 86592; 87081; 87086; 93005; 96361; 96365; 99285